=== PATIENT | male | born 1940 | race Caucasian/White ===

== ENCOUNTER → 2016-11-29 | Outpatient (CLI) | payer OTHER ==
[~2016-11-29] MED LIST: COREG 3.125M3.125 MG PO; LEVAQUIN750 MG PO; NEURONTIN 300300 MG PO; NORCO 10-325 T1 EACH PO; PRAVACHOL40 MG PO; TRAZODONE HCL100 MG PO; TRAZODONE HCL50 MG PO
== END ==
LOC: LAB 10:23
PROVIDERS: Internal Medicine Cardiovascular Disease
DX: R06.09 Other forms of dyspnea (principal); R60.0 Localized edema; Z95.1 Presence of aortocoronary bypass graft; Z98.61 Coronary angioplasty status
CPT/HCPCS: 36415; 71020; 80048

== ENCOUNTER 2020-11-18 08:52 | Inpatient (IN) | payer OTHER ==
[~2020-11-18] VITALS: Ht 175.3 cm; Wt 106.1 kg
[~2020-11-18 08:52] MED LIST changes: +ATORVASTATIN CA80 MG PO; +BREO ELLIPTA 11 EACH INH; +BREO ELLIPTA 21 EACH INH; +BUMEX 1MG TABLET1 MG PO; +BUSPIRONE HCL5 MG PO; +CARVEDILOL3.125 MG PO; +CYMBALTA 30 MG30 MG PO; +DIAMOX 250 MG250 MG PO; +DIGOXIN125 MCG PO; +ECOTRIN81 MG PO; +EFFEXOR 37.537.5 MG PO; +ELAVIL 10 MG TA10 MG PO; +ELIQUIS 5 MG TAB5 MG PO; +GLUCOTROL XL 5 M5 MG PO; +IPRAT-ALBUT 0.5-3 ML NEB; +LASIX40 MG PO; +LEVOFLOXACIN500 MG PO; +LIORESAL TAB 1010 MG PO; +METOPROLOL SUCC25 MG PO; +MIDODRINE HCL5 MG PO; -NORCO 10-325 T1 EACH PO; +NORCO 7.5-3251 EACH PO; +PAXIL10 MG PO; +POTASSIUM CHLO20 ME2 PO; +REMERON30 MG PO; +SEROQUEL50 MG PO; +VENTOLIN HFA 66.7 GM INH
[2020-11-18 09:53] LABS: HEMOGLOBIN 8.3 gm/dl (14.0-17.5); RED BLOOD COUNT 2.57 M/UL (4.20-5.50)
[2020-11-18 10:21] LABS: BUN/CREATININE RATIO 15 (0-10)
[2020-11-18] MEDS ORDERED: BUMETANIDE1 MG PO (17:44)
[2020-11-18] MEDS ORDERED: BUSPAR 10MG10 MG PO (17:45)
[2020-11-18] MEDS ORDERED: DIGOXIN125 MCG PO (17:47)
[2020-11-18] MEDS ORDERED: EFFEXOR XR 150150 MG PO (17:49)
[2020-11-18] MEDS ORDERED: HYDROCODON-ACE1 EAC2 PO (17:50)
[2020-11-18] MEDS ORDERED: CARVEDILOL6.25 MG PO (17:51)
[2020-11-18] MEDS ORDERED: LANTUS SOL100 UNIT/1 SQ (17:51)
[2020-11-19 03:22] LABS: HEMOGLOBIN 8.1 gm/dl (14.0-17.5); RED BLOOD COUNT 2.61 M/UL (4.20-5.50); WHITE BLOOD COUNT 14.5 K/UL (4.5-11.0)
[2020-11-20 02:50] LABS: HEMOGLOBIN 8.5 gm/dl (14.0-17.5); RED BLOOD COUNT 2.71 M/UL (4.20-5.50); WHITE BLOOD COUNT 16.4 K/UL (4.5-11.0)
[2020-11-21 04:54] LABS: RED BLOOD COUNT 2.78 M/UL (4.20-5.50)
[2020-11-22 03:36] LABS: HEMOGLOBIN 8.6 gm/dl (14.0-17.5); RED BLOOD COUNT 2.77 M/UL (4.20-5.50); WHITE BLOOD COUNT 18.8 K/UL (4.5-11.0)
[2020-11-23 06:24] LABS: HEMOGLOBIN 8.2 gm/dl (14.0-17.5); RED BLOOD COUNT 2.67 M/UL (4.20-5.50); WHITE BLOOD COUNT 19.1 K/UL (4.5-11.0)
[2020-11-24 04:06] LABS: HEMOGLOBIN 8.9 gm/dl (14.0-17.5); RED BLOOD COUNT 2.83 M/UL (4.20-5.50)
[2020-11-25 04:15] LABS: HEMOGLOBIN 9.1 gm/dl (14.0-17.5); RED BLOOD COUNT 2.93 M/UL (4.20-5.50); WHITE BLOOD COUNT 19.4 K/UL (4.5-11.0)
[2020-11-25 09:16] LABS: ACINETOBACTER BAUMANNII Not Detected (Negative); CANDIDA ALBICANS Not Detected (Negative); CANDIDA KRUSEI Not Detected (Negative); CANDIDA TROPICALIS Not Detected (Negative); ENTEROCOCCUS Not Detected (Negative); ESCHERICHIA COLI Not Detected (Negative); HAEMOPHILUS INFLUENZAE Not Detected (Negative); KLEBSIELLA OXYTOCA Not Detected (Negative); KLEBSIELLA PNEUMONIAE Not Detected (Negative); KPC-CARBAPENEM-RESISTANCE GENE Not Detected (Negative); PROTEUS Not Detected (Negative); PSEUDOMONAS AERUGINOSA Not Detected (Negative); SERRATIA MARCESANS Not Detected (Negative); STAPHYLOCOCCUS AUREUS Not Detected (Negative); STREP AGALACTIAE (GROUP B) Not Detected (Negative); STREP PYOGENES (GROUP A) Not Detected (Negative); STREPTOCOCCUS Not Detected (Negative); mecA (METHICILLIN RESIST GENE Not Detected (Negative); vanA/B (VANCOMYCIN RESIST GENE Not Detected (Negative)
[2020-11-25 10:41] LABS: STAPHYLOCOCCUS DETECTED (Negative)
[2020-11-26 10:04] LABS: HEMOGLOBIN 8.7 gm/dl (14.0-17.5); RED BLOOD COUNT 2.82 M/UL (4.20-5.50); WHITE BLOOD COUNT 19.8 K/UL (4.5-11.0)
[2020-11-27 05:10] LABS: HEMOGLOBIN 8.4 gm/dl (14.0-17.5); RED BLOOD COUNT 2.72 M/UL (4.20-5.50); WHITE BLOOD COUNT 16.9 K/UL (4.5-11.0)
[2020-11-27] MEDS ORDERED: LEVOFLOXACIN500 MG PO (16:07)
== END 2020-11-27 16:59 | disposition home or self-care (01) | DRG 291 ==
LOC: ER1 08:52 → CDU 15:32 → MED SURG 4 15:32 → PROG CARE 17:42 → MED SURG 4 11-22 22:28
PROVIDERS: Emergency Medicine; Family Medicine; Internal Medicine; ADMIT Internal Medicine
PROC: 02H633Z Insertion of Infusion Device into Right Atrium, Percutaneous Approach (ICD-10-PCS; principal; 2020-11-18)
PROC: B548ZZA Ultrasonography of Superior Vena Cava, Guidance (ICD-10-PCS; 2020-11-18)
DX: I50.33 Acute on chronic diastolic (congestive) heart failure (principal); J96.21 Acute and chronic respiratory failure with hypoxia; R57.0 Cardiogenic shock; R53.2 Functional quadriplegia; I47.2 Ventricular tachycardia; I13.0 Hypertensive heart and chronic kidney disease with heart failure and stage 1 through stage 4 chronic kidney disease, or unspecified chronic kidney disease; N17.9 Acute kidney failure, unspecified; I69.351 Hemiplegia and hemiparesis following cerebral infarction affecting right dominant side; I48.91 Unspecified atrial fibrillation; E78.5 Hyperlipidemia, unspecified; I11.0 Hypertensive heart disease with heart failure; F32.9 Major depressive disorder, single episode, unspecified; M48.061 Spinal stenosis, lumbar region without neurogenic claudication; Z20.822 Contact with and (suspected) exposure to COVID-19; N28.1 Cyst of kidney, acquired; E87.6 Hypokalemia; M54.5 Low back pain; E11.22 Type 2 diabetes mellitus with diabetic chronic kidney disease; N18.30 Chronic kidney disease, stage 3 unspecified; I25.10 Atherosclerotic heart disease of native coronary artery without angina pectoris; E66.9 Obesity, unspecified; I95.9 Hypotension, unspecified; G89.29 Other chronic pain; M19.90 Unspecified osteoarthritis, unspecified site; D72.829 Elevated white blood cell count, unspecified; I27.20 Pulmonary hypertension, unspecified; J44.9 Chronic obstructive pulmonary disease, unspecified; I25.2 Old myocardial infarction; D53.9 Nutritional anemia, unspecified; Z79.02 Long term (current) use of antithrombotics/antiplatelets; Z79.01 Long term (current) use of anticoagulants; Z88.0 Allergy status to penicillin; Z79.82 Long term (current) use of aspirin; Z99.81 Dependence on supplemental oxygen; Z90.49 Acquired absence of other specified parts of digestive tract; Z80.49 Family history of malignant neoplasm of other genital organs; Z82.49 Family history of ischemic heart disease and other diseases of the circulatory system; Z79.4 Long term (current) use of insulin; Z68.36 Body mass index [BMI] 36.0-36.9, adult; Z95.1 Presence of aortocoronary bypass graft; Z98.61 Coronary angioplasty status
CPT/HCPCS: ECHO; 36415; 70450; 71045; 80048; 80053; 80202; 81001; 82550; 82553; 82962; 83735; 83880; 84100; 84132; 84484; 85025; 85610; 85730; 87040; 87070; 87077; 87150; 87186; 93005; 93306; 94640; 94664; 94760; 96374; 97161; 97166; 97530-GP-CQ; 99285; J1940; J2060; J2270; J2405; J3370; J3480; J7070; U0002

== ENCOUNTER 2021-01-09 09:53 | Inpatient (IN) | payer OTHER ==
[~2021-01-09] VITALS: Ht 175.3 cm; Wt 101.9 kg
[~2021-01-09 09:53] MED LIST changes: +BUMETANIDE1 MG PO; +BUSPAR 10MG10 MG PO; +CARVEDILOL6.25 MG PO; +EFFEXOR XR 150150 MG PO; +HYDROCODON-ACE1 EAC2 PO; +LANTUS SOL100 UNIT/1 SQ
[2021-01-09] MEDS ORDERED: BUMETANIDE2 MG PO (13:45)
[2021-01-09] MEDS ORDERED: NOVOLOG FL100 UNIT/1 INJ (13:50)
[2021-01-09] MEDS ORDERED: EFFEXOR 37.537.5 MG PO (13:52)
[2021-01-10 02:52] LABS: HEMOGLOBIN 7.8 gm/dl (14.0-17.5); RED BLOOD COUNT 2.62 M/UL (4.20-5.50)
[2021-01-11 03:29] LABS: RED BLOOD COUNT 2.69 M/UL (4.20-5.50); WHITE BLOOD COUNT 12.6 K/UL (4.5-11.0)
[2021-01-12 04:13] LABS: HEMOGLOBIN 7.8 gm/dl (14.0-17.5); RED BLOOD COUNT 2.6 M/UL (4.20-5.50); WHITE BLOOD COUNT 15.6 K/UL (4.5-11.0)
[2021-01-13 04:22] LABS: HEMOGLOBIN 8.3 gm/dl (14.0-17.5); RED BLOOD COUNT 2.75 M/UL (4.20-5.50); WHITE BLOOD COUNT 15.8 K/UL (4.5-11.0)
[2021-01-13 06:11] LABS: CREATININE, URINE 19.1 mg/dL (Not Estab.)
[2021-01-14 06:07] LABS: HEMOGLOBIN 8.5 gm/dl (14.0-17.5); RED BLOOD COUNT 2.84 M/UL (4.20-5.50); WHITE BLOOD COUNT 16.6 K/UL (4.5-11.0)
[2021-01-14 07:10] LABS: COMPLEMENT C3, SERUM 163 mg/dL (82-167); COMPLEMENT C4, SERUM 22 mg/dL (12-38)
[2021-01-14] MEDS ORDERED: BUMETANIDE2 MG PO (09:50)
[2021-01-14] MEDS ORDERED: FEROSUL325 MG PO (09:57)
[2021-01-14 15:09] LABS: ANTI-DSDNA ANTIBODIES 2 IU/mL (0-9)
[2021-01-14 16:11] LABS: A/G RATIO 0.8 (0.7-1.7); ALPHA-1-GLOBULIN 0.3 g/dL (0.0-0.4); ALPHA-2-GLOBULIN 0.8 g/dL (0.4-1.0); GAMMA GLOBULIN 1.6 g/dL (0.4-1.8); GLOBULIN, TOTAL 3.8 g/dL (2.2-3.9); IMMUNOGLOBULIN A, QN, SERUM 365 mg/dL (61-437); IMMUNOGLOBULIN G, QN, SERUM 1599 mg/dL (603-1613); IMMUNOGLOBULIN M, QN, SERUM 77 mg/dL (15-143); M-SPIKE Not Observed g/dL (Not Observed); PROTEIN, TOTAL, SERUM 6.8 g/dL (6.0-8.5)
[2021-01-16 20:11] LABS: ANTIMYELOPEROXIDASE (MPO) ABS <9.0 U/mL (0.0-9.0); ANTIPROTEINASE 3 (PR-3) ABS <3.5 U/mL (0.0-3.5); ATYPICAL PANCA <1:20 titer (Neg:<1:20); CYTOPLASMIC (C-ANCA) <1:20 titer (Neg:<1:20); PERINUCLEAR (P-ANCA) <1:20 titer (Neg:<1:20)
== END 2021-01-14 16:08 | disposition home health service (06) | DRG 291 ==
LOC: PROG CARE 09:53 → M/S 12:56
PROVIDERS: Internal Medicine; Internal Medicine Nephrology; Physician Assistant; Physician Assistant Surgical; ADMIT Internal Medicine
DX: I13.0 Hypertensive heart and chronic kidney disease with heart failure and stage 1 through stage 4 chronic kidney disease, or unspecified chronic kidney disease (principal); I50.33 Acute on chronic diastolic (congestive) heart failure; J96.21 Acute and chronic respiratory failure with hypoxia; Z20.822 Contact with and (suspected) exposure to COVID-19; J96.22 Acute and chronic respiratory failure with hypercapnia; I48.20 Chronic atrial fibrillation, unspecified; S37.39XA Other injury of urethra, initial encounter; E44.0 Moderate protein-calorie malnutrition; N17.9 Acute kidney failure, unspecified; E87.3 Alkalosis; I08.1 Rheumatic disorders of both mitral and tricuspid valves; I27.20 Pulmonary hypertension, unspecified; E11.22 Type 2 diabetes mellitus with diabetic chronic kidney disease; D50.9 Iron deficiency anemia, unspecified; D63.1 Anemia in chronic kidney disease; F32.9 Major depressive disorder, single episode, unspecified; F01.50 Vascular dementia, unspecified severity, without behavioral disturbance, psychotic disturbance, mood disturbance, and anxiety; E66.9 Obesity, unspecified; R31.9 Hematuria, unspecified; N18.32 Chronic kidney disease, stage 3b; E87.6 Hypokalemia; E78.5 Hyperlipidemia, unspecified; X58.XXXA Exposure to other specified factors, initial encounter; I08.3 Combined rheumatic disorders of mitral, aortic and tricuspid valves; I95.89 Other hypotension; Z79.01 Long term (current) use of anticoagulants; Z79.82 Long term (current) use of aspirin; Z95.1 Presence of aortocoronary bypass graft; Z86.73 Personal history of transient ischemic attack (TIA), and cerebral infarction without residual deficits; Z74.01 Bed confinement status; Z90.49 Acquired absence of other specified parts of digestive tract; Z88.0 Allergy status to penicillin; Z82.49 Family history of ischemic heart disease and other diseases of the circulatory system; Z80.8 Family history of malignant neoplasm of other organs or systems; Z98.42 Cataract extraction status, left eye; Z98.41 Cataract extraction status, right eye; Z68.30 Body mass index [BMI] 30.0-30.9, adult
CPT/HCPCS: 36415; 71045; 80048; 80053; 80162; 81001; 82043; 82550; 82553; 82570; 82607; 82728; 82746; 82784; 82803; 82962; 83520; 83540; 83550; 83735; 83880; 83883; 84100; 84132; 84133; 84155; 84156; 84165; 84439; 84443; 84484; 85025; 85027; 86038; 86160; 86225; 86256; 86334; 93005; 94640; 94760; J1650; J1756